=== PATIENT | male | born 1990 | race Caucasian/White ===

== ENCOUNTER 2018-08-07 07:06 | Emergency (ER) | payer BC, SELFPAY ==
[2018-08-07 07:07] VITALS: BP 131/98; PULSE 84; RESP 16; TEMP 36.9; O2SAT 97; BMI 31.5
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
[2018-08-07 08:47] VITALS: BP 126/57; PULSE 71; RESP 15; O2SAT 98
[2018-08-07] MEDS: Silver Nitrate (BKC) 1 EACH TOPICAL (08:49)
== END 2018-08-07 08:52 | disposition home or self-care (01) ==
PROVIDERS: Emergency Provider Emergency Medicine; Family Provider Family Medicine; PCP Family Medicine
DX: S61.411A Laceration without foreign body of right hand, initial encounter (principal); W25.XXXA Contact with sharp glass, initial encounter; Y93.89 Activity, other specified; Y92.009 Unspecified place in unspecified non-institutional (private) residence as the place of occurrence of the external cause
CPT/HCPCS: 12002; 99283

== ENCOUNTER 2020-10-27 07:52 | Emergency (ER) | payer SELFPAY ==
[2020-10-27 07:53] VITALS: BP 144/102; PULSE 81; RESP 18; TEMP 36.2; O2SAT 97; BMI 31.5
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
[2020-10-27] MEDS: Diphth,Pertuss(Acell),Tet Vac 0.5 ML Vial IM (08:37)
[2020-10-27] MEDS: Ondansetron 8 MG Tablet 4 MG PO (08:41)
[2020-10-27 09:53] VITALS: RESP 15
[2020-10-27] MEDS: Tetracaine 0.5% Ophthalmic Bottle OPHTHALMIC (10:45)
[2020-10-27] MEDS: Fluorescein 1 MG STRIP 1 STRIP OPHTHALMIC (10:45)
[2020-10-27 11:16] VITALS: BP 129/74; PULSE 62; RESP 15; O2SAT 98
== END 2020-10-27 11:16 | disposition home or self-care (01) ==
PROVIDERS: Emergency Provider Emergency Medicine
DX: T15.02XA Foreign body in cornea, left eye, initial encounter (principal); F17.210 Nicotine dependence, cigarettes, uncomplicated; W39.XXXA Discharge of firework, initial encounter
CPT/HCPCS: 90471; 90715; 99283

== ENCOUNTER → 2021-09-14 | Outpatient (CLI) | payer SELFPAY ==
--- NOTE | 2021-09-14 06:45 | RAD_ITS ---
STUDY: X-RAY - ORBITS REASON FOR EXAM: Male, 30 years old. Pre-MRI clearance. History of possible metal in eye. TECHNIQUE: 1 view(s) of the orbits were obtained. COMPARISON: None. FINDINGS: Normal bilateral orbits without a metallic orbital foreign body. Normal visualized facial bones. Normal paranasal sinuses. The soft tissue structures are unremarkable. RAD/Orbits for Foreign Body IMPRESSION: No demonstrated metallic orbital foreign body. The patient is cleared for an MRI examination. Electronically Signed: Narayan Machado MD at 7:35 EDT Reading Location ID and State: [id number] / , Service support ,
--- NOTE | 2021-09-14 07:37 | MRI_ITS ---
STUDY: MRI BRAIN WITH AND WITHOUT CONTRAST REASON FOR EXAM: Male, 30 years old. VISION LOSS OD, POSS OPTIC NEURITIS/MS TECHNIQUE: Standardized multiplanar fat and water weighted pulse sequences were obtained. IV dotarem 20ml was administered for the contrast portion of the examination. COMPARISON: None. FINDINGS: Normal size of the ventricles and extra-axial spaces for the patient''s age. Normal white matter tracts of the supratentorial brain. There is no evidence for recent intracranial ischemia or other cause of cytotoxic edema on diffusion weighted imaging (DWI). Normal T2* images of the brain without demonstrated susceptibility artifact. There is no demonstrated hemosiderin stain. Normal bilateral basal ganglia. Normal thalami. There is no extra-axial fluid accumulation. Normal flow voids within the major intracranial circulation suggesting patency by spin echo criteria. Normal venous enhancement. There is no enhancing intra-axial or extra-axial abnormality. Normal sella turcica, pituitary gland, infundibular stalk, optic chiasm and hypothalamus. Normal tectal plate and pineal gland. Normal midbrain, linnea and medulla. Normal cerebellum. Normal basal cisterns. Normal bilateral temporal bones. Normal bilateral internal auditory canals. No demonstrated orbital abnormality, within the constraints of a routine brain study. Normal visualized paranasal sinuses. Normal calvarium and skull base. Normal visualized soft tissue structures. Normal visualized upper cervical spine. MRI/Brain W/WO Contrast IMPRESSION: Normal unenhanced and enhanced MRI of the brain. Electronically Signed: Colton Camara MD at 9:04 EDT ,
== END | disposition home or self-care (01) ==
LOC: MRI 07:37
PROVIDERS: Visit Provider Ophthalmology
DX: H54.7 Unspecified visual loss (principal)
CPT/HCPCS: 70030; 70553; A9575

== ENCOUNTER 2023-09-19 20:24 | Emergency (ER) | payer MEDICAID, SELFPAY ==
[2023-09-19 20:24] VITALS: BP 137/75; PULSE 108; RESP 20; TEMP 36.2; O2SAT 96; BMI 34.2
[2023-09-19 20:31] VITALS: BP 135/87; PULSE 110; RESP 28; O2SAT 96
[2023-09-19] MEDS: DiphenhydrAMINE 50 MG/ML Syringe IV (20:33)
[2023-09-19] MEDS: MethylPREDNISolone 125 MG/2 ML Vial IV (20:33)
[2023-09-19] MEDS: Famotidine 200 MG/20 ML MDV 20 MG in 0.9% Normal Saline (Pres. free 8 ML 300 MG IV (21:00)
[2023-09-19 21:24] VITALS: BP 156/98; PULSE 97; RESP 32; O2SAT 98
[2023-09-19 22:00] VITALS: BP 142/87; PULSE 101; RESP 18; O2SAT 99
--- NOTE | 2023-09-19 22:07 | EX.ED.DYSGE1 ---
HPI History of Present Illness Chief Complaint: Allergic Reaction Informant: patient Narrative Narrative: Patient is a 32-year-old male no segment past medical history presenting with allergic reaction after sustaining multiple bee stings. Patient states he was stung multiple times today on his upper extremities. He started developing itching, redness and swelling to his face as well as rash to his upper extremities and into his chest. Took 50 mg of [id number] Benadryl prior to arrival. No other complaints or concerns reported at this time. States he has been stung multiple times by bees/wasps over the past year but never had a reaction like this. Denies any shortness of breath or difficulty breathing. Denies any sensation of throat swelling or mouth swelling. Denies any cramping abdominal pain, nausea, vomiting or diarrhea. [facility] Medical History Back fracture Home Medications ?Medication ?Instructions ?Recorded ?Last Taken ?Type epinephrine 0.3 mg/0.3 mL 0.3 mg (0.3 mL) IM Q10M PRN PRN 09/19/23 Unknown Rx injection, auto-injector anaphylaxis #2 ea famotidine 20 mg tablet (Pepcid) 20 mg PO DAILY #7 tabs 09/19/23 Unknown Rx prednisone 50 mg tablet 50 mg PO DAILY #5 tabs 09/19/23 Unknown Rx Allergy/AdvReac Type Severity Reaction Status Date / Time bee venom protein (honey Allergy Anaphylaxis Verified 09/19/23 20:25 bee) (bee sting) Social History Smoking Status: Current some day smoker tobacco type: cigarettes ROS ROS ED Constitutional Constitutional ED: Denies chills or fever(s) Eyes Eyes: Reports other Details: Bilateral eyelid ; Denies blurry vision ENT ENT ED: Denies sore throat Cardiovascular Cardiovascular: Denies chest pain Respiratory/Chest Respiratory/Chest: Denies cough or dyspnea Gastrointestinal Gastrointestinal: Denies abdominal pain, diarrhea or vomiting Musculoskeletal Musculoskeletal: Denies arthralgias or myalgias Integumentary Reports rash Neurologic Neurologic: Denies headache(s) EXAM Physical Exam Const Vital Signs: 09/19/23 20:24 09/19/23 20:31 07/15/24 21:24 Temperature 97.2 F L Temperature Source Temporal Pulse Rate 108 H 110 H 97 Respiratory Rate 20 H 28 H 32 H Blood Pressure 137/75 H 135/87 H 156/98 H Blood Pressure Mean 95 103 117 Pulse Ox 96 96 98 Oxygen Delivery Method Room Air Room Air 09/19/23 22:00 09/19/23 22:10 Temperature 98.9 F Temperature Source Pulse Rate 101 H 100 Respiratory Rate 18 27 H Blood Pressure 142/87 H 142/87 H Blood Pressure Mean 105 105 Pulse Ox 99 100 Oxygen Delivery Method Room Air Positive well nourished and well developed General Appearance ED: well developed and NAD HEENT Reports moist mucous membranes HEENT Narrative: Outer lips are swollen as well as periorbital edema present. No edema or swelling noted of the uvula, tongue or buccal surfaces. Normal phonation. Eyes PERRL and EOMs intact bilaterally Neck supple Neck Narrative: No stridor Chest Wall inspection of chest normal and palpation of chest normal Resp normal respiratory effort and clear to auscultation bilaterally Auscultation: Negative for rhonchi or wheezes Cardio regular rate and regular rhythm GI normal to inspection, nondistended, normoactive bowel sounds and non-tender Extremity normal to inspection General Extremety ED: Negative for edema General Extremity: Negative for edema Neuro oriented x3 Sensorium / Orientation: alert Motor Exam: Negative for general weakness Psych mental status grossly normal Skin Skin Narrative: Urticarial skin changes to the upper extremities, chest and face Rashes: rashes noted MDM MDM MDM Narrative Medical decision making narrative: Patient evaluated for allergic reaction after wasp/bee sting. Does not have any wheezing, significant airway involvement and blood pressure is normal. Do not think he requires epinephrine. Is given IV Solu-Medrol, Benadryl and Pepcid. On repeat evaluation he feels that he is improving. He still says some skin changes but has no progress of airway changes. Feel that he can be discharged home. We given a prescription for prednisone, Pepcid, Zyrtec and an EpiPen. Is agreeable with plan of care. Given return precautions. Discharged home in stable condition. Discharge Plan Triage Chief Complaint: Allergic Reaction ED Provider: Syeda Kumar Dx/Rx/DC Orders Clinical Impression: Allergic reaction to bee sting Instructions: ED BEE STING General Allergic Rxn, ED Using an Injection Pen Prescriptions: New prednisone 50 mg tablet 50 mg PO DAILY Qty: 5 0RF epinephrine 0.3 mg/0.3 mL auto-injector 0.3 mg IM Q10M PRN PRN (Reason: anaphylaxis) Qty: 2 0RF Rx Instructions: for 2 doses famotidine [Pepcid] 20 mg tablet 20 mg PO DAILY Qty: 7 0RF Primary Care Provider: Care Physician,No Primary Referrals: Care Physician,No Primary [Primary Care Provider] - Activity Restrictions/Additional Instructions: Please return if your symptoms are worsening. Call 911 or go immediately to the emergency room if you use the EpiPen. You may also take [id number] Benadryl (up to 50 mg or 2 tablets/capsules) every 6 hours. He take a daily Zyrtec as well which is opzl-dcl-lpdruct. Print Language: Cuban Disposition Disposition: Home, Self Care Discharge Date/Time: 09/19/23 22:38
[2023-09-19 22:10] VITALS: BP 142/87; PULSE 100; RESP 27; TEMP 37.2; O2SAT 100
== END 2023-09-19 22:38 | disposition home or self-care (01) ==
PROVIDERS: Emergency Provider Emergency Medicine; Visit Provider Emergency Medicine
DX: T63.441A Toxic effect of venom of bees, accidental (unintentional), initial encounter (principal); F17.210 Nicotine dependence, cigarettes, uncomplicated
CPT/HCPCS: 96374; 96375; 96376; 99283; J7030; A4216; J3490